=== PATIENT | male | born 1965 | race Caucasian/White ===

== ENCOUNTER 2018-03-03 23:12 | Emergency (ER) | payer BC, OTHER ==
[~2018-03-03] VITALS: Ht 177.8 cm; Wt 93.4 kg
[2018-03-03] MEDS: LIDOCAINE WITH 8.4% SOD BICARB 3 ML DISP.SYRIN. INJ ONE (23:30)
[2018-03-03] MEDS: DIPHTH,PERTUSS(ACELL),TET TOX 0.5 ML DISP.SYRIN. VAX IM ONE (23:45)
[2018-03-03 23:51] VITALS: BP 163/94
--- NOTE | 2018-03-04 00:12 | PHYS DOC ---
Past Medical History Past Medical History: No Pertinent History Past Surgical History: No Surgical History Alcohol Use: Heavy Drug Use: None Adult General Chief Complaint Chief Complaint: LACERATION/AVULSION HPI HPI Patient is a 53 year old male who presents with left eyebrow laceration, patient states he fell of his 3 feet camper at the race [employer]. Patient denies any loss of consciousness, appears drunk. He states he only had one beer. Review of Systems Review of Systems Constitutional: Denies fever or chills [] Eyes: Denies change in visual acuity, redness, or eye pain [] HENT: Denies nasal congestion or sore throat [] Respiratory: Denies cough or shortness of breath [] Cardiovascular: No additional information not addressed in HPI [] GI: Denies abdominal pain, nausea, vomiting, bloody stools or diarrhea [] : Denies dysuria or hematuria [] Musculoskeletal: Denies back pain or joint pain [] Integument: left eyebrow laceration, Neurologic: Denies headache, focal weakness or sensory changes [] All other systems were reviewed and found to be within normal limits, except as documented in this note. Current Medications Current Medications Current Medications Medications (Trade) Dose Ordered Sig/Concepcion Start Time Stop Time Status Last Admin Dose Admin Diphtheria/ Tetanus/Acell Pertussis (Boostrix) 0.5 ml ONCE ONCE 03/04/18 00:45 03/04/18 00:46 DC 03/04/18 00:45 0.5 ML Lidocaine/Sodium Bicarbonate (Buffered Lidocaine 1%) 3 ml 1X ONCE 03/04/18 00:45 03/04/18 00:46 DC 03/04/18 00:45 3 ML Allergies Allergies Allergies Coded Allergies Type Severity Reaction Last Updated Verified Unable to Assess 03/04/18 No Physical Exam Physical Exam Constitutional: Well developed, well nourished, no acute distress, non-toxic appearance. [] HENT: Normocephalic, atraumatic, bilateral external ears normal, oropharynx moist, no oral exudates, nose normal. [] Eyes: PERRLA, EOMI, conjunctiva normal, no discharge. [] Neck: Normal range of motion, no tenderness, supple, no stridor. [] Cardiovascular:Heart rate regular rhythm, no murmur [] Lungs & Thorax: Bilateral breath sounds clear to auscultation [] Abdomen: Bowel sounds normal, soft, no tenderness, no masses, no pulsatile masses. [] Skin: Warm, dry, left upper eyebrow with a laceration approximately 2 cm long. Bleeding has stopped. There is bruising on the left cheek. Back: No tenderness, no CVA tenderness. [] Extremities: No tenderness, no cyanosis, no clubbing, ROM intact, no edema. [] Neurologic: Alert and oriented X 3, normal motor function, normal sensory function, no focal deficits noted. [] Psychologic: Affect normal, judgement normal, mood normal. [] Current Patient Data Vital Signs Vital Signs Date Time Temp Pulse Resp B/P (MAP) Pulse Ox O2 Delivery O2 Flow Rate FiO2 03/03/18 23:51 98.4 95 18 163/94 (117) 99 Room Air 98.4 EKG EKG [] Radiology/Procedures Radiology/Procedures Laceration/Wound Repair Wound Location: Left upper eyebrow Wound's Depth, Shape: Horizontal Wound Length (cm): Approximately 2 cm Wound Explored: clean Irrigated w/ Saline (ccs): 10 Betadine Prep?: Yes Anesthesia: 1% buffered lidocaine Volume Anesthetic (ccs): 1 mL Wound Repaired With: Dissolvable gut Suture Size/Type: 6/interrupted sutures Number of Sutures: 4 Progress : Wound was left open to air Course & Med Decision Making Course & Med Decision Making Pertinent Labs and Imaging studies reviewed. (See chart for details) This is a 53-year-old male patient who presents to the ED today with left eyebrow laceration. Patient fell off his [place] the racetrack. He appears drunk though he states he only had one beer. He has refused CT of his head. He is alert oriented and able to make his own decisions right now. Laceration was repaired by me as noted in procedures. Wound care instructions and return precautions provided. Staff Physician Addendum: I was working in the ER during the course of this patient's visit. I was available for consultation as needed, but I was not directly involved in the care of this patient. Dragon Disclaimer Dragon Disclaimer This electronic medical record was generated, in whole or in part, using a voice recognition dictation system. Departure Departure Impression: Primary Impression: Fall Additional Impressions: Facial contusion Eyebrow laceration Disposition: HOME, SELF-CARE Condition: STABLE Referrals: UNKNOWN PCP NAME (PCP) Follow-up with your doctor as needed Patient Instructions: Contusion, Facial Laceration, Fall Prevention and Home Safety Additional Instructions: You were evaluated in the emergency room. The laceration on your upper eye brow was closed with dissolvable sutures. You can shower and wash your face. Do not soak her face. Apply Neosporin to the laceration site and the bruises on your face twice a day for 7 days. Monitor the area for signs of infection including but not limited to increased redness to the area, warmth to the area, yellow drainage to the area and return to the ED if they occur or see your own primary care doctor. Problem Qualifiers Primary Impression: Fall Encounter type: initial encounter Qualified Codes: W19.XXXA - Unspecified fall, initial encounter Additional Impressions: Facial contusion Encounter type: initial encounter Qualified Codes: S00.83XA - Contusion of other part of head, initial encounter Eyebrow laceration Encounter type: initial encounter Laterality: left Qualified Codes: S01.112A - Laceration without foreign body of left eyelid and periocular area, initial encounter TODD VALENTIN APRN Mar 04, 2018 00:12 MARCO ANTONIO PRABHAKAR MD Mar 04, 2018 03:40
[2018-03-04] MEDS: DIPHTH,PERTUSS(ACELL),TET TOX 0.5 ML DISP.SYRIN. VAX IM ONE (00:45)
[2018-03-04] MEDS: LIDOCAINE WITH 8.4% SOD BICARB 3 ML DISP.SYRIN. INJ ONE (00:45)
== END 2018-03-04 00:50 | disposition home or self-care (01) ==
LOC: ER 23:12
DX: S01.112A Laceration without foreign body of left eyelid and periocular area, initial encounter (principal); W17.89XA Other fall from one level to another, initial encounter; Y93.I9 Activity, other involving external motion; Y92.39 Other specified sports and athletic area as the place of occurrence of the external cause; Y99.8 Other external cause status
CPT/HCPCS: 12011; 90471; 90715; 99283-25